=== PATIENT | female | born 1965 | race Hispanic/Latino ===

== ENCOUNTER 2017-09-15 20:16 | Emergency (ER) | payer OTHER ==
[2017-09-15] MEDS ORDERED: ASPIRIN 325 MG TABLET ONE (20:27)
[2017-09-15 20:51] LABS: BASOPHILS % (AUTO) 0.6 % (0.0-5.0); EOSINOPHILS % (AUTO) 1.2 % (0.0-8.0); HEMATOCRIT 39.9 % (36-48); LYMPHOCYTES % (AUTO) 25.6 % (21.0-51.0); MEAN CORPUSCULAR HEMOGLOBIN 31.6 pg (27.0-33.0); MEAN CORPUSCULAR HGB CONC 34.4 g/dL (32.0-36.0); MEAN CORPUSCULAR VOLUME 91.9 fL (79-99); MONOCYTES % (AUTO) 6.7 % (3.0-13.0); NEUTROPHILS % (AUTO) 65.9 % (40.0-77.0); PLATELET COUNT (AUTO) 338 K/uL (130-400); RED BLOOD CELL COUNT(AUTO) 4.34 MIL/uL (4.00-5.50); RED CELL DISTRIBUTION WIDTH 11.8 % (11.0-15.5); WHITE BLOOD COUNT (AUTO) 8.8 K/uL (4.8-10.8)
[2017-09-15] MEDS ORDERED: ACETAMINOPHEN 325 MG TAB ONE (20:59)
[2017-09-15] MEDS ORDERED: HYDROXYZINE HCL 25 MG TABLET ONE (20:59)
[2017-09-15 21:00] LABS: CARBON DIOXIDE 29 mmol/L (21-32); CHLORIDE 101 mmol/L (101-111); CREATININE 0.6 mg/dL (0.5-1.5); GLOMERULAR FILTR. RATE CALC 112 mL/min (>60); GLUCOSE,RANDOM 112 mg/dL (70-105); POTASSIUM 3.7 mmol/L (3.5-5.1); SODIUM SERUM 139 mmol/L (136-145); UREA NITROGEN, BLOOD 12 mg/dL (7-18)
[2017-09-15 21:01] LABS: INR 0.92 (0.85-1.15); PARTIAL THROMBOPLASTIN TIME 27.3 SEC (26.3-35.5); PROTHROMBIN TIME 9.7 SEC (9.6-11.6)
[2017-09-15 21:14] LABS: ALANINE AMINOTRANSFERASE 29 U/L (12-78); ALBUMIN 3.2 g/dL (3.5-5.0); ASPARTATE AMINOTRANSFERASE 21 U/L (10-37); BILIRUBIN,TOTAL 0.2 mg/dL (0.2-1.0); CREATINE KINASE MB < 0.5 ng/mL (0.5-3.6); CREATINE KINASE, TOTAL 87 U/L (21-232); MYOGLOBIN 16 ng/mL (10-92); TOTAL PROTEIN, SERUM 8.1 g/dL (6.0-8.3)
== END 2017-09-15 22:07 | disposition home or self-care (01) ==
LOC: EDH 20:16
DX: J06.9 Acute upper respiratory infection, unspecified (principal); H92.02 Otalgia, left ear; Z79.899 Other long term (current) drug therapy
CPT/HCPCS: 36415; 71045; 80053; 82550; 82553; 83874; 84484; 85025; 85610; 85730; 93005; 94761

== ENCOUNTER 2022-03-23 17:25 | Emergency (ER) | payer OTHER ==
[~2022-03-23] VITALS: Ht 154.9 cm; Wt 61.2 kg
[2022-03-23 17:54] LABS: BASOPHILS % (AUTO) 0.7 % (0.0-5.0); EOSINOPHILS % (AUTO) 0.7 % (0.0-8.0); HEMATOCRIT 41.9 % (36-48); LYMPHOCYTES % (AUTO) 40.4 % (21.0-51.0); MEAN CORPUSCULAR HEMOGLOBIN 31.5 pg (27.0-33.0); MEAN CORPUSCULAR HGB CONC 34.6 g/dL (32.0-36.0); MEAN CORPUSCULAR VOLUME 91.1 fL (79-99); MONOCYTES % (AUTO) 5.5 % (3.0-13.0); NEUTROPHILS % (AUTO) 52.6 % (40.0-77.0); PLATELET COUNT (AUTO) 248 K/uL (130-400); WHITE BLOOD COUNT (AUTO) 7.2 K/uL (4.8-10.8)
[2022-03-23 18:00] LABS: APPEARANCE,URINE Clear (CLEAR); BILIRUBIN,URINE Negative (NEGATIVE); COLOR,URINE Yellow (YELLOW); GLUCOSE, URINE (UA) Negative (NEGATIVE); KETONES,URINE Negative (NEGATIVE); LEUKOCYTE ESTERASE ,URINE Negative (NEGATIVE); NITRATE,URINE Negative (NEGATIVE); OCCULT BLOOD,URINE Negative (NEGATIVE); PROTEIN,URINE Negative (NEGATIVE); UROBILINOGEN,URINE 0.2 mg/dL (0.2-1.0)
[2022-03-23] MEDS ORDERED: GABAPENTIN 300 MG CAPSULE PO SCH (18:00)
[2022-03-23 18:04] LABS: CREATININE 0.8 mg/dL (0.5-1.5); POTASSIUM 3.9 mmol/L (3.5-5.1)
[2022-03-23 18:09] LABS: TOTAL PROTEIN, SERUM 8.2 g/dL (6.0-8.3)
[2022-03-23] MEDS ORDERED: GABA300C PO (18:30)
[2022-03-23 18:36] VITALS: BP 121/74
== END 2022-03-23 18:41 | disposition home or self-care (01) ==
LOC: EDH 17:25
DX: B02.29 Other postherpetic nervous system involvement (principal); Z79.899 Other long term (current) drug therapy
CPT/HCPCS: 36415; 71045; 80053; 81003; 82550; 84484; 85025

== ENCOUNTER 2024-03-07 20:16 | Emergency (ER) | payer OTHER ==
[~2024-03-07] VITALS: Ht 154.9 cm; Wt 61.2 kg
[~2024-03-07 20:16] MED LIST: GABA300C PO
[2024-03-07 20:52] VITALS: BP 171/81; PULSE 74; RESP 18
[2024-03-07] MEDS ORDERED: NAPR375T6 PO (21:53)
[2024-03-07] MEDS: KETOROLAC 30MG VIAL (30MG/ML) IM ONE (21:53)
== END 2024-03-07 22:02 | disposition home or self-care (01) ==
LOC: EDH 20:16
DX: S80.12XA Contusion of left lower leg, initial encounter (principal); I10 Essential (primary) hypertension; Z79.899 Other long term (current) drug therapy; X58.XXXA Exposure to other specified factors, initial encounter; Y93.89 Activity, other specified; Y92.89 Other specified places as the place of occurrence of the external cause; Y99.8 Other external cause status
CPT/HCPCS: 99283; 73590; 96372; J1885

== ENCOUNTER 2025-01-01 01:53 | Emergency (ER) | payer SELFPAY ==
[~2025-01-01] VITALS: Ht 154.9 cm; Wt 61.2 kg
[~2025-01-01 01:53] MED LIST changes: +NAPR-1505 PO
[2025-01-01 02:33] LABS: BASOPHILS # (AUTO) 0.04 K/uL (0.00-0.20); BASOPHILS % (AUTO) 0.5 % (0.0-5.0); EOSINOPHILS % (AUTO) 1.3 % (0.0-8.0); HEMATOCRIT 42.5 % (36-48); IMMATURE GRANULOCYTE ABSOLUTE 0.02 K/uL (0-1); LYMPHOCYTES # (AUTO) 3.4 K/uL (1.0-4.8); LYMPHOCYTES % (AUTO) 44.4 % (21.0-51.0); MEAN CORPUSCULAR HEMOGLOBIN 32.1 pg (27.0-33.0); MEAN CORPUSCULAR HGB CONC 34.8 g/dL (32.0-36.0); MEAN CORPUSCULAR VOLUME 92.2 fL (79-99); MONOCYTES # (AUTO) 0.5 K/uL (0.1-1.0); MONOCYTES % (AUTO) 6.8 % (3.0-13.0); NEUTROPHILS # (AUTO) 3.6 K/uL (1.8-7.7); NEUTROPHILS % (AUTO) 46.7 % (40.0-77.0); PLATELET COUNT (AUTO) 242 K/uL (130-400); RED BLOOD CELL COUNT(AUTO) 4.61 MIL/uL (4.00-5.50); WHITE BLOOD COUNT (AUTO) 7.6 K/uL (4.8-10.8)
[2025-01-01 02:35] LABS: APPEARANCE,URINE CLEAR (CLEAR); BILIRUBIN,URINE NEGATIVE (NEGATIVE); COLOR,URINE COLORLESS (YELLOW); GLUCOSE, URINE (UA) NEGATIVE (NEGATIVE); KETONES,URINE NEGATIVE (NEGATIVE); LEUKOCYTE ESTERASE ,URINE NEGATIVE Leu/uL (NEGATIVE); NITRATE,URINE NEGATIVE (NEGATIVE); OCCULT BLOOD,URINE NEGATIVE (NEGATIVE); PH,URINE 7.5 (5.0-8.0); PROTEIN,URINE NEGATIVE (NEGATIVE); UROBILINOGEN,URINE 0.2 mg/dL (0.2-1.0)
[2025-01-01 02:37] LABS: ADD UA MICROSCOPIC NO
[2025-01-01] MEDS: LACTATED RINGERS 1000ML IV STA (02:43)
[2025-01-01 02:45] LABS: CREATININE 0.7 mg/dL (0.5-1.0); POTASSIUM 4.1 mmol/L (3.5-5.1)
--- NOTE | 2025-01-01 03:23 | ERN ---
General Chief Complaint: Dizzy/Light Headed Stated Complaint: DIZZINESS Time Seen by MD: 01:55 Source: patient History of Present Illness Initial Comments Patient is a 59-year-old female with a history of hypertension and hypercholesterolemia who comes in with complaints of the room spinning for two days. On questioning it is real vertigo it is not simple lightheadedness. She has had it in the distant past once and it resolved spontaneously. This time it is the worst it has ever been. It is accompanied with mild nausea but no emesis. It is not associated with migraines or headaches. She does not have symptoms of an upper respiratory tract infection. No fevers no chills. Nothing she does makes it worse. In the past what makes it better is taking her blood pressure medicine or taking a nutritional supplement and then taking a nap. Allergies: Coded Allergies: No Known Drug Allergies (Unverified Allergy, Unknown, 03/07/24) Home Meds Active Scripts Naproxen (Naproxen) 375 Mg Tablet.dr, 375 MG PO BID for 7 Days, #14 TAB Prov:AME ROBERTS MD 03/07/24 Gabapentin (Neurontin) 300 Mg Capsule, 300 MG PO TID, #90 CAP Prov:HILLARY ROSAS 03/23/22 Past Medical History Past Medical History: Hypertension Past Surgical History: None Family History Family History: Negative Social History Social History: Negative Constitutional: (-) chills, (-) diaphoresis, (-) fever, (-) malaise, (-) weakness, (-) other documentation EENTM: (-) eye pain, (-) blurred vision, (-) tearing, (-) double vision, (-) ear pain, (-) ear discharge, (-) nose pain, (-) nose congestion, (-) throat pain, (-) Throat swelling, (-) mouth pain, (-) tooth pain, (-) mouth swelling, (-) other documentation Respiratory: (-) cough, (-) orthopnea, (-) short of breath, (-) stridor, (-) wheezing, (-) other documentation Cardiovascular: (-) chest pain, (-) edema, (-) palpitations, (-) syncope, (-) d yspnea on exertion, (-) other documentation Gastrointestinal/Abdominal: (+) nausea Genitourinary: (-) vaginal discharge, (-) vaginal bleeding, (-) dysuria, (-) frequency, (-) hematuria, (-) pain, (-) other documentation Musculoskeletal: (-) Neck pain, (-) back pain, (-) Flank Pain, (-) joint pain, (-) joint swelling, (-) muscle pain, (-) muscle stiffness, (-) gout, (-) other documentation Skin: (-) laceration, (-) contusion, (-) abrasion, (-) abscess, (-) rash, (-) change in color, (-) change in hair, (-) change in nails, (-) diaphoresis, (-) dryness, (-) other documentation Physical Exam General Appearance: (+) mild distress Orientation: (+) alert, (+) oriented x 3 Head/Face Trauma: No Eye: bilateral eye normal inspection, bilateral eye PERRL, bilateral eye EOMI Ear, Nose, Throat Comment Tried to examine bilateral tympanic membranes it was difficult because of cerumen the portions that I saw were the inferior posterior tympanic membranes and both of them appeared to be scarred. They were white and and not translucent. Neck: (+) normal inspection, (+) supple, (+) full range of motion, (+) non- tender Respiratory: (+) chest non-tender, (+) lungs clear, (+) well ventilated Heart: (+) regular, (+) no gallop Vascular: (+) no edema, (+) normal peripheral pulse Results Laboratory and Microbiology Lab and Micro Result Laboratory Tests Test 01/01/25 02:22 White Blood Count 7.6 K/uL (4.8-10.8) Red Blood Count 4.61 MIL/uL (4.00-5.50) Hemoglobin 14.8 g/dL (12.0-16.0) Hematocrit 42.5 % (36-48) Mean Corpuscular Volume 92.2 fL (79-99) Mean Corpuscular Hemoglobin 32.1 pg (27.0-33.0) Mean Corpuscular Hemoglobin Concent 34.8 g/dL (32.0-36.0) Red Cell Distribution Width 12.0 % (11.0-15.5) Platelet Count 242 K/uL (130-400) Mean Platelet Volume 9.5 fL (7.5-10.5) Immature Granulocyte % (Auto) 0.3 % (0-1) Neutrophils (%) (Auto) 46.7 % (40.0-77.0) Lymphocytes (%) (Auto) 44.4 % (21.0-51.0) Monocytes (%) (Auto) 6.8 % (3.0-13.0) Eosinophils (%) (Auto) 1.3 % (0.0-8.0) Basophils (%) (Auto) 0.5 % (0.0-5.0) Neutrophils # (Auto) 3.6 K/uL (1.8-7.7) Lymphocytes # (Auto) 3.4 K/uL (1.0-4.8) Monocytes # (Auto) 0.5 K/uL (0.1-1.0) Eosinophils # (Auto) 0.10 K/uL (0.00-0.70) Basophils # (Auto) 0.04 K/uL (0.00-0.20) Absolute Immature Granulocyte (auto 0.02 K/uL (0-1) Nucleated Red Blood Cells 0.0 % (0.0-0.19) Urine Color COLORLESS (YELLOW) Urine Appearance CLEAR (CLEAR) Urine pH 7.5 (5.0-8.0) Urine Specific [place] 1.015 (1.001-1.031) Urine Protein NEGATIVE mg/dL (NEGATIVE) Urine Glucose (UA) NEGATIVE mg/dL (NEGATIVE) Urine Ketones NEGATIVE mg/dL (NEGATIVE) Urine Occult Blood NEGATIVE (NEGATIVE) Urine Nitrate NEGATIVE (NEGATIVE) Urine Bilirubin NEGATIVE mg/dL (NEGATIVE) Urine Urobilinogen 0.2 mg/dL (0.2-1.0) Urine Leukocyte Esterase NEGATIVE Jones/uL Sodium Level 141 mmol/L (136-145) Potassium Level 4.1 mmol/L (3.5-5.1) Chloride Level 102 mmol/L (101-111) Carbon Dioxide Level 31 mmol/L (21-32) Blood Urea Nitrogen 15 mg/dL (7-18) Creatinine 0.7 mg/dL (0.5-1.0) Glomerular Filtration Rate Calc 100 mL/min (>90) Random Glucose 114 mg/dL (70-105) H Total Calcium 9.1 mg/dL (8.5-10.1) Procalcitonin < 0.05 ng/mL (0.05-0.5) L MDM I performed the January Hallpike test 1st of the patient's head turned 45 to the right and then 45 to the left. The patient had worse vertigo with the head turned to the right. Then we did the Sandy maneuver. It did seem to improve her dizziness but it made her nausea worse. I gave her a injection of Zofran. After the end of the Sandy maneuver she complained of left ear pain as well. I will give her some Tylenol. And let her rest. The patient's lab work has come back with a CBC that is normal a urine analysis that is normal and a chemistry panel that is normal. In addition procalcitonin is normal. So if she does have an infection causing some labyrinthitis it is viral. ED Course Orders Procedure Category Date Status Time Basic Metabolic Panel LAB 01/01/25 Complete 01:59 Cbc With Differential LAB 01/01/25 Complete 01:59 Procalcitonin LAB 01/01/25 Complete 01:59 Urinalysis Profile LAB 01/01/25 Complete 01:59 Lactated Ringers PHA 01/01/25 Complete 1000ml (Lactated 01:59 Ondansetron 4mg Inj PHA 01/01/25 Complete (Zofran 4mg Inj) 04:00 Acetaminophen 650mg PHA 01/01/25 Complete Elixir (Tylenol 650m 04:30 Current Medications Medications (Trade) Dose Ordered Sig/Clary Route PRN Reason Start Time Stop Time Status Last Admin Dose Admin Acetaminophen (TYLenol 650MG ELIXIR) 650 mg ONCE ONCE PO 01/01/25 04:30 01/01/25 04:31 DC 01/01/25 04:31 Lactated Ringer's (Lactated Ringers 1000ml) 1,000 ml BOLUS STAT IV 01/01/25 01:59 01/01/25 02:01 DC 01/01/25 02:43 Ondansetron HCl (zoFRAN 4MG INJ) 4 mg ONCE ONCE IVP 01/01/25 04:00 01/01/25 04:08 DC 01/01/25 04:30 Vital Signs Date Time Temp Pulse Resp B/P (MAP) Pulse Ox O2 Delivery O2 Flow Rate FiO2 01/01/25 03:40 98.1 76 20 158/7 98 Room Air* 0 21 01/01/25 02:05 97.5 69 18 160/94 99 Room Air* 0 21 01/01/25 01:54 97.7 66 16 160/101 97 Room Air DX & DISP Disposition: Discharge Departure Impression: Primary Impression: Benign paroxysmal positional vertigo of left ear Condition: Stable Scripts Azithromycin (Azithromycin) 250 Mg Tablet 1 TAB PO AD for 5 Days, #6 TAB 0 Refills 2 the first day followed by 1 for days 2-5 Prov: DAVID PICKARD MD 01/01/25 Additional Instructions: Please see your primary care physician about this hopefully he can provide you with a handout and instructions on how to reposition the stones yourself. I think you have benign paroxysmal positional vertigo or BPPV. If your left ear starts hurting more with increased pressure or if you start having fevers swelling increased pressure in the sinuses on your face please return. Referrals: SELF,REFERRAL (PCP) DAVID PICKARD MD Jan 01, 2025 03:23
[2025-01-01] MEDS: ondanSETRON 4MG INJ IVP ONE (04:30)
[2025-01-01] MEDS: acetaMINOPHEN 650 MG/20.3 ML UDCUP PO ONE (04:31)
[2025-01-01] MEDS ORDERED: AZIT250T9 PO (05:23)
[2025-01-01 05:38] VITALS: BP 127/72; PULSE 71; RESP 18; TEMP 98; O2SAT 97
== END 2025-01-01 05:49 | disposition home or self-care (01) ==
LOC: EDH 01:53
DX: H81.12 Benign paroxysmal vertigo, left ear (principal); E78.00 Pure hypercholesterolemia, unspecified; I10 Essential (primary) hypertension; Z79.899 Other long term (current) drug therapy
CPT/HCPCS: 99284; 96374; 96361; 80048; 85025; 81003; 36415; 84145; J7120; J2405